=== PATIENT | female | born 1960 | race American Indian/Alaskan Native ===

== ENCOUNTER 2016-08-19 11:00 | Outpatient (CLI) | payer BC ==
--- NOTE | 2016-08-19 11:51 | Mammography Report ---
BONE DENSITY STUDY: DEFINITIONS: BMD = Bone Mineral Density T-score = BMD related to mean peak bone mass of young adult (mean expressed in Standard Deviation) Z-score = Age matched BMD expressed in SD World Health Organization (WHO) Diagnostic Criteria Normal T-score > -1 SD Osteopenia T-score between -1 and -2.4 SD Osteoporosis T-score -2.5 SD or below FINDINGS: The weighted average BMD of lumbar spine L1-L4 is 0.954 with a T-score of -1.8. The BMD of L3 is 0.885 with a T. value score of -2.8. The weighted average BMD of the left hip is 0.799 with a T-score of -1.5. The BMD of the femoral neck is 0.629 with a T. value score of -2.3. IMPRESSION: The patient's average T-score is diagnostic for osteopenia and average relative risk for fracture. Attention to L3 and femoral neck. NOTE: BMD is not the only risk factor for fracture; also consider factors such as the patient's age, risk of falling, previous osteoporotic fracture, family history of osteoporotic fractures, current smoker, and low body weight. Hughes's triangle is a region of interest in femur, predominantly of trabecular bone. It is not a true anatomic site, and ISCD does not recommend its use clinically.
== END 2016-08-19 11:01 | disposition home or self-care (01) ==
LOC: SPVWC 11:00
PROVIDERS: ATTEND Obstetrics & Gynecology
DX: M85.88 Other specified disorders of bone density and structure, other site (principal)
CPT/HCPCS: 77080

== ENCOUNTER 2016-10-02 17:34 | Emergency (ER) | payer BC ==
[2016-10-02 18:10] LABS: Basophils % (Auto) 1.2 % (0.0-1.8); Eosinophils % (Auto) 5.1 % (0.0-4.3); Hematocrit 43.8 % (30.3-42.9); Hemoglobin 14.1 gm/dl (10.1-14.3); Mean Corpuscular HGB Conc 32 % (30-34); Mean Corpuscular Hemoglobin 26 pg (28-32); Mean Corpuscular Volume 81 fl (79-97); Platelet Count 292 K/mm3 (140-440); Red Blood Count 5.38 M/mm3 (3.65-5.03); Red Cell Distribution Width 14.1 % (13.2-15.2); White Blood Count 6.6 K/mm3 (4.5-11.0)
[2016-10-02 18:27] LABS: Anion Gap 21 mmol/L; BUN/Creatinine Ratio 16.25; Blood Urea Nitrogen 13 mg/dL (7-17); Calcium 9.7 mg/dL (8.4-10.2); Carbon Dioxide 24 mmol/L (22-30); Chloride 103.3 mmol/L (98-107); Glucose 79 mg/dL (65-100); Potassium 3.2 mmol/L (3.6-5.0); Sodium 145 mmol/L (137-145)
[2016-10-03] MEDS ORDERED: K-DUR PO ONE (06:25)
[2016-10-03] MEDS ORDERED: TORADOL IM ONE (06:44)
--- NOTE | 2016-10-03 06:58 | Emergency Department Report ---
HPI - General Chief Complaint: Chest Pain Time Seen by Provider: 10/03/16 06:25 - HPI HPI: This is a 55-year-old -[place] female who presents to the emergency department from home, after driving herself in to be seen, with complaint of left jaw pain. The patient says that the pain started in the middle of the day on Monday, yesterday. She says she has a known history of a cyst around the jaw and the soft tissue that was found on some type of imaging in the past and she is unsure if that is the cause of her discomfort. She denies any known history of any dental caries, abscesses or any "bad teeth." She took some naproxen for her discomfort once without much relief. 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 She denies any neck pain, chest pain, shortness of breath, nausea, vomiting or diaphoresis. She has a history of hypertension for which she takes her medications compliantly. She sees Dr. Gordon Greenwood for primary care and goes to [facility]. No recent travel or sick contacts at home. She denies any headache, vision change, slurred speech or any neurological deficits. ED Past Medical Hx - Past Medical History Previous Medical History?: Yes Hx Hypertension: Yes Additional medical history: mvp, cholesterol - Surgical History Past Surgical History?: Yes Additional Surgical History: breast cyst, right shoulder, bunions - Social History Smoking Status: Never Smoker Substance Use Type: Alcohol - Medications Home Medications: Home Medications Medication Instructions Recorded Confirmed Last Taken Type HYDROcodone/APAP 5-325 [[place] 1 each PO Q6HR PRN #10 tablet 10/03/16 Unknown Rx 5/325] ED Review of Systems ROS: Stated complaint: LT SIDE JAW PAIN Other details as noted in HPI Comment: All other systems reviewed and negative Constitutional: denies: chills, fever Eyes: denies: eye pain, eye discharge, vision change ENT: other (jaw pain). denies: throat pain Respiratory: denies: cough, shortness of breath, wheezing Cardiovascular: denies: chest pain, palpitations Gastrointestinal: denies: abdominal pain, nausea, diarrhea Genitourinary: denies: urgency, dysuria, discharge Musculoskeletal: denies: back pain, joint swelling, arthralgia Skin: denies: rash, lesions Neurological: denies: headache, weakness, paresthesias Physical Exam - Physical Exam Vital Signs: Vital Signs 10/02/16 17:40 Temperature 98.4 F Pulse Rate 115 H Respiratory 16 Rate Blood Pressure 129/86 O2 Sat by Pulse 99 Oximetry Physical Exam: GENERAL: The patient is well-developed well-nourished. HEENT: Normocephalic. Atraumatic. Extraocular motions are intact. Patient has moist mucous membranes. Pupils equal reactive to light bilaterally. Oropharynx is clear without any tonsillar hypertrophy, erythema or exudates. No visible palpable dental abscesses. There is no facial swelling. No palpable mass. No drooling or trismus. NECK: Supple. Trachea is midline. Full range of motion. No carotid bruits auscultated. CHEST/LUNGS: Clear to auscultation. There is no respiratory distress noted. HEART/CARDIOVASCULAR: Regular. There is no tachycardia. There is no gallop rub or murmur. ABDOMEN: Abdomen is soft, nontender. Patient has normal bowel sounds. There is no abdominal distention. SKIN: Skin is warm and dry. NEURO: The patient is awake, alert, and oriented. The patient is cooperative. The patient has no focal neurologic deficits. The patient has normal speech. MUSCULOSKELETAL: There is no tenderness or deformity. There is no limitation range of motion. There is no evidence of acute injury. ED Course Vital Signs 10/02/16 17:40 Temperature 98.4 F Pulse Rate 115 H Respiratory 16 Rate Blood Pressure 129/86 O2 Sat by Pulse 99 Oximetry ED Medical Decision Making - Lab Data Result diagrams: 10/02/16 17:56 10/02/16 17:56 - EKG Data -: EKG Interpreted by Ia EKG shows normal: sinus rhythm, axis, intervals, QRS complexes, ST-T waves Rate: tachycardia (110 bpm) - EKG Data When compared to previous EKG there are: previous EKG unavailable Interpretation: normal EKG (with sinus tachycardia) - Medical Decision Making This is a 55-year-old female who presents to the emergency department with complaint of left jaw pain has been going on for the past 1-2 days. There is no signs of infection. No drooling or trismus. There are no carotid bruits auscultated. Heart and lung sounds are normal to auscultation. EKG does not show any signs of ST elevation [place], ischemia or dysrhythmia. There is no radiation from the jaw to the neck, shoulder, chest or back. There is no signs of any abscess. She has a previous history of a cyst in the soft tissue around the affected jaw and may have some level of neuralgia. She was given a shot of Toradol and upon reevaluation she is feeling greatly improved. Vital signs stable throughout her ED course. She has good follow-up with primary care and cardiology. This is low especially for coronary artery disease, however if the patient develops any chest pain or shortness of breath she will return immediately for further evaluation. The patient is a 0 on the VERÓNICA score and low for the hard score criteria. - Differential Diagnosis dental abscess, TMJ, trigeminal neuralgia Critical Care Time: No Critical care attestation.: If time is entered above; I have spent that time in minutes in the direct care of this critically ill patient, excluding procedure time. ED Disposition Clinical Impression: Jaw pain Disposition: DISCHARGED TO HOME OR SELFCARE Is pt being admited?: No Condition: Stable Instructions: Temporomandibular Disorder (ED) Additional Instructions: You have been seen today for your left-sided jaw pain. This could be TMJ, nerve pain from your known cyst, early dental infection, but the etiology is unknown at this time but does not appear to be anything dangerous. Please follow-up with your primary care doctor as soon as possible without fail. Return to the emergency department with any development of chest pain, shortness of breath, worsening of your symptoms or any acute distress. You've been prescribed a medication that is sedating. Therefore this medication cannot be mixed with alcohol, or taken prior to driving, working, or being responsible for children. Prescriptions: HYDROcodone/APAP 5-325 [[place] 5/325] 1 each PO Q6HR PRN #10 tablet PRN Reason: Pain Referrals: GORDON GREENWOOD JR, MD [Primary Care Provider] - 3-5 Days Time of Disposition: 08:09
[2016-10-03 08:28] VITALS: BP 132/77
== END 2016-10-03 08:40 | disposition home or self-care (01) ==
LOC: ED 17:34
DX: R68.84 Jaw pain (principal); I10 Essential (primary) hypertension; E78.00 Pure hypercholesterolemia, unspecified; Z91.013 Allergy to seafood; Z88.8 Allergy status to other drugs, medicaments and biological substances
CPT/HCPCS: 36415; 80048; 84484; 85025; 93005; 93010; 96372; 99284; J1885

== ENCOUNTER 2017-02-23 11:17 | Outpatient (CLI) | payer BC ==
--- NOTE | 2017-02-24 08:38 | Mammography Report ---
BILATERAL DIGITAL SCREENING MAMMOGRAM with CAD: 02/23/17 11:17:00 CLINICAL: Routine screening. COMPARISON:02/17/16 FINDINGS: The breasts are heterogeneously dense, which may obscure small masses. No mass, architectural distortion or suspicious calcifications. IMPRESSION: No mammographic evidence of malignancy. BI-RADS CATEGORY: 1 - - Negative RECOMMENDATION: Routine mammographic screening in one year. COMMENT: Patient follow-up letters are generated by our [employer] application.
== END 2017-02-23 11:18 | disposition home or self-care (01) ==
LOC: SPVWC 11:17
PROVIDERS: ATTEND Obstetrics & Gynecology
DX: Z12.31 Encounter for screening mammogram for malignant neoplasm of breast (principal)
CPT/HCPCS: 77067; G0202

== ENCOUNTER 2017-04-20 00:56 | Emergency (ER) | payer BC ==
[2017-04-20] MEDS ORDERED: BENADRYL PO ONE ×2 (01:22→01:40)
[2017-04-20] MEDS ORDERED: PEPCID ONE (01:22)
[2017-04-20] MEDS ORDERED: PEPCID PO ONE ×2 (01:41→04:26)
--- NOTE | 2017-04-20 04:28 | Emergency Department Report ---
HPI - General Chief Complaint: Allergic Reaction Time Seen by Provider: 04/20/17 03:40 ED Past Medical Hx - Past Medical History Hx Hypertension: Yes Additional medical history: mvp, cholesterol - Surgical History Additional Surgical History: breast cyst, right shoulder, bunions - Social History Smoking Status: Never Smoker Substance Use Type: None - Medications Home Medications: Home Medications Medication Instructions Recorded Confirmed Last Taken Type HYDROcodone/APAP 5-325 [[place] 1 each PO Q6HR PRN #10 tablet 10/03/16 Unknown Rx 5/325] ED Review of Systems ROS: Stated complaint: ALLERGIC REACTION Other details as noted in HPI Physical Exam - Physical Exam Vital Signs: Vital Signs 04/20/17 01:15 Temperature 97.7 F Pulse Rate 100 H Blood Pressure 152/91 O2 Sat by Pulse 99 Oximetry ED Course Vital Signs 04/20/17 01:15 Temperature 97.7 F Pulse Rate 100 H Blood Pressure 152/91 O2 Sat by Pulse 99 Oximetry Critical care attestation.: If time is entered above; I have spent that time in minutes in the direct care of this critically ill patient, excluding procedure time. ED Disposition Condition: Stable Referrals: PRIMARY CARE, [Primary Care Provider] - 3-5 Days
--- NOTE | 2017-04-20 04:33 | Emergency Department Report ---
ED Allergic Reaction HPI - General Chief complaint: Allergic Reaction Stated complaint: ALLERGIC REACTION Time Seen by Provider: 04/20/17 03:40 Source: patient Mode of arrival: Ambulatory Limitations: No Limitations - History of Present Illness Initial Comments: 56-year-old female presents with complaint of hives and itchy skin. States she ate [place] food which may have had shrimp in it. Patient has allergy to shrimp. States that she ate leftover [place] food in the refrigerator at home. States immediately after eating she experienced hives on her face back chest and abdomen. Patient states that her informed her there may have been shrimp. Patient states she took Benadryl and 4 mg of Decadron she had in her drug cabinet at home. Patient then came to the ED for evaluation. Patient given multiple antihistamines in triage. Has experienced significant reduction of her urticaria itching and hives since arriving to the ED. Patient is awake alert and oriented 3 speaking in full sentences nor audible wheezing or stridor. No trismus and no drooling no tripoding on clinical exam. Patient states she is allergic to shellfish and amlodipine. States episode started at 12 AM. Patient denies lip or tongue swelling. Some hives around her eyes. MD Complaint: allergic reaction, hives Onset/Timin -: hour(s) Exposure: food Symptoms: itching, facial swelling Severity: moderate Treatment Prior to Arrival: benadryl Previous Allergy History: angioedema, other (hives secondary to exposure to shellfish) - Related Data Previous Rx's Medication Instructions Recorded Last Taken Type HYDROcodone/APAP 5-325 [[place] 1 each PO Q6HR PRN #10 tablet 10/03/16 Unknown Rx 5/325] EPINEPHrine [Epipen] 0.3 mg IJ ONCE PRN #1 auto.injct 04/20/17 Unknown Rx Famotidine [Pepcid] 20 mg PO BID PRN #30 tablet 04/20/17 Unknown Rx Loratadine [Claritin] 10 mg PO DAILY #30 tablet 04/20/17 Unknown Rx diphenhydrAMINE [Benadryl CAP] 25 mg PO Q8HR PRN #30 capsule 04/20/17 Unknown Rx methylPREDNISolone [Medrol] 4 mg PO QDAY #1 tab.ds.pk 04/20/17 Unknown Rx Allergies Allergy/AdvReac Type Severity Reaction Status Date / Time amlodipine besylate AdvReac Shortness Verified 10/02/16 17:53 [From [facility]] of Breath shellfish derived AdvReac Hives Verified 10/02/16 17:53 ED Review of Systems ROS: Stated complaint: ALLERGIC REACTION Other details as noted in HPI Constitutional: denies: chills, fever Eyes: denies: eye pain, eye discharge, vision change ENT: denies: ear pain, throat pain Respiratory: denies: cough, shortness of breath, wheezing Cardiovascular: denies: chest pain, palpitations Endocrine: no symptoms reported Gastrointestinal: denies: abdominal pain, nausea, diarrhea Genitourinary: denies: urgency, dysuria, discharge Musculoskeletal: denies: back pain, joint swelling, arthralgia Skin: as per HPI, pruritus, other (hives). denies: rash, lesions Neurological: denies: headache, weakness, paresthesias Psychiatric: denies: anxiety, depression Hematological/Lymphatic: denies: easy bleeding, easy bruising ED Past Medical Hx - Past Medical History Hx Hypertension: Yes Additional medical history: mvp, cholesterol - Surgical History Additional Surgical History: breast cyst, right shoulder, bunions - Social History Smoking Status: Never Smoker Substance Use Type: None - Medications Home Medications: Home Medications Medication Instructions Recorded Confirmed Last Taken Type HYDROcodone/APAP 5-325 [[place] 1 each PO Q6HR PRN #10 tablet 10/03/16 Unknown Rx 5/325] EPINEPHrine [Epipen] 0.3 mg IJ ONCE PRN #1 auto.injct 04/20/17 Unknown Rx Famotidine [Pepcid] 20 mg PO BID PRN #30 tablet 04/20/17 Unknown Rx Loratadine [Claritin] 10 mg PO DAILY #30 tablet 04/20/17 Unknown Rx diphenhydrAMINE [Benadryl CAP] 25 mg PO Q8HR PRN #30 capsule 04/20/17 Unknown Rx methylPREDNISolone [Medrol] 4 mg PO QDAY #1 tab.ds.pk 04/20/17 Unknown Rx ED Physical Exam - General Limitations: No Limitations General appearance: alert, in no apparent distress - Head Head exam: Present: atraumatic, normocephalic - Eye Eye exam: Present: normal appearance, PERRL, EOMI - ENT ENT exam: Present: normal orophraynx (oropharynx open and patent. Tongue not swollen. Uvula midline.), mucous membranes moist - Neck Neck exam: Present: normal inspection - Respiratory Respiratory exam: Present: normal lung sounds bilaterally. Absent: respiratory distress - Cardiovascular Cardiovascular Exam: Present: regular rate, normal rhythm. Absent: systolic murmur, diastolic murmur, rubs, gallop - GI/Abdominal GI/Abdominal exam: Present: soft, normal bowel sounds - Extremities Exam Extremities exam: Present: normal inspection - Back Exam Back exam: Present: normal inspection - Neurological Exam Neurological exam: Present: alert, oriented X3, CN II-XII intact, normal gait - Psychiatric Psychiatric exam: Present: normal affect, normal mood - Skin Skin exam: Present: warm, dry, intact, normal color, urticaria (minimal urticaria left on upper extremities). Absent: rash ED Course Vital Signs 04/20/17 04/20/17 01:15 04:56 Temperature 97.7 F 97.5 F L Pulse Rate 100 H 78 Respiratory 16 Rate Blood Pressure 152/91 Blood Pressure 127/89 [Right] O2 Sat by Pulse 99 100 Oximetry ED Medical Decision Making - Medical Decision Making A/P: Allergic reaction, food allergy, hives 1-antihistamines, Benadryl, Claritin, Medrol Dosepak, EpiPen when necessary for angioedema. I explained to the patient the specific circumstances under which to use this and to return to the ED JOSSE if her allergic reaction/hives worsens 2-follow-up with information systems director and primary care 3-patient vital signs stable for discharge with near complete resolution of her allergic symptoms urticaria and hives Critical care attestation.: If time is entered above; I have spent that time in minutes in the direct care of this critically ill patient, excluding procedure time. ED Disposition Clinical Impression: Hives, Food allergy Disposition: DC-01 TO HOME OR SELFCARE Is pt being admited?: No Does the pt Need Aspirin: No Condition: Stable Instructions: Epinephrine (Injection), Urticaria (ED), Food Allergy (ED) Prescriptions: diphenhydrAMINE [Benadryl CAP] 25 mg PO Q8HR PRN #30 capsule PRN Reason: Allergic Reaction EPINEPHrine [Epipen] 0.3 mg IJ ONCE PRN #1 auto.injct PRN Reason: Angioedema Famotidine [Pepcid] 20 mg PO BID PRN #30 tablet PRN Reason: Itching Loratadine [Claritin] 10 mg PO DAILY #30 tablet methylPREDNISolone [Medrol] 4 mg PO QDAY #1 tab.ds.pk Referrals: [facility] [Provider Group] - 3-5 Days Forms: Work/School Release Form(ED) Time of Disposition: 04:29
[2017-04-20 04:57] VITALS: BP 127/89
== END 2017-04-20 04:56 | disposition home or self-care (01) ==
LOC: ED 00:56
DX: L50.9 Urticaria, unspecified (principal); T78.1XXA Other adverse food reactions, not elsewhere classified, initial encounter; I10 Essential (primary) hypertension; Z88.8 Allergy status to other drugs, medicaments and biological substances; Z91.013 Allergy to seafood; X58.XXXA Exposure to other specified factors, initial encounter
CPT/HCPCS: 96372; 99282; J2930

== ENCOUNTER 2017-06-14 10:42 | Outpatient (CLI) | payer BC ==
--- NOTE | 2017-06-14 11:26 | XRay Report ---
ROUTINE CHEST, TWO VIEWS: HISTORY: Shortness of breath. The trachea, heart, mediastinal contour, lung mills and bony thorax are unremarkable. IMPRESSION: Unremarkable chest x-ray.
== END 2017-06-14 10:43 | disposition home or self-care (01) ==
LOC: XRAY 10:42
PROVIDERS: ATTEND Internal Medicine Cardiovascular Disease
DX: R06.02 Shortness of breath (principal); R05 Cough
CPT/HCPCS: 71046

== ENCOUNTER 2019-01-17 10:18 | Outpatient (CLI) | payer BC ==
--- NOTE | 2019-01-18 14:57 | Mammography Report ---
BILATERAL DIGITAL DIAGNOSTIC MAMMOGRAM WITH CAD -- 01/17/2019 BILATERAL LIMITED BREAST ULTRASOUND INDICATION: Bilateral breast pain and lumps. History of bilateral benign biopsies. TECHNIQUE: Digital bilateral mammographic imaging was performed. Magnification views were obtained. This examination was interpreted with the benefit of Computer-Aided Detection (CAD) analysis. COMPARISON: 02/28/2018 FINDINGS: Breast Density: The breasts are heterogeneously dense, which may obscure small masses. MAMMOGRAPHIC FINDINGS: There is no evidence of dominant mass, suspicious calcifications or architectu ral distortion in either breast. No mammographic findings at bilateral simple marker is at 6:00. ULTRASOUND FINDINGS: Targeted ultrasound evaluation was performed of the area of interest. Ultrasou nd of the right breast demonstrated an oval benign cyst at 6:00 5 cm from the nipple measuring 3 x 4 x 4 mm. A vague hypoechoic area of shadowing near a scar at 9:00 7 cm from the nipple measures 7 x 5 x 5 mm and a similar vague hypoechoic area of shadowing near scar at 9:00 6 m from the nipple measure s 5 x 3 x 3 mm. Ultrasound of the left breast demonstrated a shadowing scar at 9:00 8 cm from the nip ple measuring 6 x 4 x 3 mm. IMPRESSION: Negative mammogram and probably benign bilateral scar. Recommend short-term follow-up wit h bilateral breast targeted ultrasound in 3 months. Follow up recommendation: Short term follow up in 3 months. BI-RADS Category 3: Probably Benign. Followup in 3 months. A "normal" or negative report should not discourage follow up or biopsy of a clinically significant f inding. A written summary of these findings will be mailed to the patient. The patient will be entered into a mammography reporting system which will generate a reminder letter for the patient's next appointmen t at the appropriate interval. According to the [employer], yearly mammograms are recommended starting at age 40 and continuing as long as a woman is in good health. Breast MRI is recommended for women with an timmy roximately 20-25% or greater lifetime risk of breast cancer, including women with a strong family his tory of breast or ovarian cancer and women who have been treated for Hodgkin's disease. Signer Name: Bill Navarro MD Signed: 01/18/2019 2:52 PM Workstation Name: [id number]
== END 2019-01-17 10:19 | disposition home or self-care (01) ==
LOC: SPVWC 10:18
PROVIDERS: ATTEND Obstetrics & Gynecology
DX: N64.4 Mastodynia (principal); I10 Essential (primary) hypertension
CPT/HCPCS: 77066

== ENCOUNTER 2019-04-18 11:15 | Outpatient (CLI) | payer BC ==
--- NOTE | 2019-04-18 16:30 | Ultrasound Report ---
LIMITED BILATERAL BREAST ULTRASOUND HISTORY: Follow-up bilateral shadowing lesions. COMPARISON: 01/17/2019. FINDINGS: Focused sonographic evaluation upon the 9:00 7 cm from the nipple location of the right jostin ast demonstrates stable vague shadowing which appears to emanate from an overlying scar. No mass fiss ures finding. Focused sonographic evaluation upon the 9:00 8 cm from the nipple location of the left breast demonst rates stable vague shadowing which appears to emanate from an overlying scar. No suspicious finding. IMPRESSION: Bilateral benign findings. Recommend routine mammographic screening. BIRADS 2: Benign Signer Name: Bill Navarro MD Signed: 04/18/2019 4:25 PM Workstation Name: [id number]
== END 2019-04-18 11:16 | disposition home or self-care (01) ==
LOC: SPVWC 11:15
PROVIDERS: ATTEND Surgery
DX: N64.89 Other specified disorders of breast (principal)

== ENCOUNTER 2020-01-15 10:22 | Outpatient (CLI) | payer BC ==
--- NOTE | 2020-01-15 12:22 | Mammography Report ---
DIGITAL SCREENING MAMMOGRAM WITH CAD, 01/15/2020 INDICATION: Routine screening mammography. TECHNIQUE: Digital bilateral 2D mammography was obtained in the craniocaudal and mediolateral obliq ue projections. This examination was interpreted with the benefit of Computer-Aided Detection analysi s. COMPARISON: 02/23/2017, 02/28/2018 FINDINGS: Breast Density: The breasts are heterogeneously dense, which may obscure small masses. There is no evidence of dominant mass, suspicious calcifications or architectural distortion in eithe r breast. Postsurgical scars are present in the right breast, unchanged. Overall, no interval change in the appearance of the mammogram. IMPRESSION: No evidence of malignancy. Follow up recommendation: Routine yearly BI-RADS Category 2: Benign. A "normal" or negative report should not discourage follow up or biopsy of a clinically significant f inding. A written summary of these findings will be mailed to the patient. The patient will be entered into a mammography reporting system which will generate a reminder letter for the patient's next appointmen t at the appropriate interval. The [employer] recommends yearly mammograms starting at age 40 and continuing as l frieda as a woman is in good health. Breast MRI is recommended for women with an approximate 20-25% or greater lifetime risk of breast cancer, including women with a strong family history of breast or ova lucrecia cancer or who have been treated for Hodgkin's disease. Signer Name: Ele Headley MD Signed: 01/15/2020 12:18 PM Workstation Name: [id number]
== END 2020-01-15 10:23 | disposition home or self-care (01) ==
LOC: SPVWC 10:22
PROVIDERS: ATTEND Surgery
DX: Z12.31 Encounter for screening mammogram for malignant neoplasm of breast (principal)
CPT/HCPCS: 77067

== ENCOUNTER 2020-10-07 14:15 | Outpatient (CLI) | payer BC, OTHER ==
--- NOTE | 2020-10-07 15:25 | Mammography Report ---
LEFT DIGITAL DIAGNOSTIC MAMMOGRAM WITH CAD CONVENTIONAL, 10/07/2020 LEFT LIMITED BREAST ULTRASOUND CLINICAL INFORMATION / INDICATION: Pain in the left breast TECHNIQUE: Digital left mammographic imaging was performed. Limited ultrasound was performed. This ex amination was interpreted with the benefit of Computer-Aided Detection (CAD) analysis. COMPARISON: 01/15/2020, 01/17/2019 FINDINGS: Breast Density: The breasts are heterogeneously dense, which may obscure small masses. MAMMOGRAPHIC FINDINGS: No dominant mass, suspicious calcifications, or architectural distortion in th e left breast. ULTRASOUND FINDINGS: Targeted ultrasound evaluation was performed of the area of interest. No focal sonographic abnormality is seen in the area of concern in the left breast. No solid or cystic lesion s are seen. IMPRESSION: No mammographic or sonographic evidence of malignancy. Follow up recommendation: Back to schedule. BI-RADS Category 2: Benign. A "normal" or negative report should not discourage follow up or biopsy of a clinically significant f inding. A written summary of these findings will be mailed to the patient. The patient will be entered into a mammography reporting system which will generate a reminder letter for the patient's next appointmen t at the appropriate interval. According to the [employer], yearly mammograms are recommended starting at age 40 and continuing as long as a woman is in good health. Breast MRI is recommended for women with an timmy roximately 20-25% or greater lifetime risk of breast cancer, including women with a strong family his tory of breast or ovarian cancer and women who have been treated for Hodgkin's disease. Signer Name: Yuri Vazquez MD Signed: 10/07/2020 3:20 PM Workstation Name: [id number]
== END 2020-10-07 14:16 | disposition home or self-care (01) ==
LOC: SPVWC 14:15
PROVIDERS: ATTEND Surgery
DX: N64.4 Mastodynia (principal); R92.8 Other abnormal and inconclusive findings on diagnostic imaging of breast

== ENCOUNTER 2021-01-19 09:20 | Outpatient (CLI) | payer BC, OTHER ==
--- NOTE | 2021-01-20 09:39 | Mammography Report ---
DIGITAL SCREENING MAMMOGRAM WITH TOMOSYNTHESIS WITH CAD, 01/19/2021 CLINICAL INFORMATION / INDICATION: Routine Screening Mammography. TECHNIQUE: Digital bilateral 2D and 3D mammography with tomosynthesis was obtained in the craniocaud al and mediolateral oblique projections. Computer-Aided Detection (CAD) analysis was used for interp retation of this study. COMPARISON: 10/01/2018 FINDINGS: Breast Density: The breasts are heterogeneously dense, which may obscure small masses. No dominant mass, suspicious calcifications, or architectural distortion in either breast. Postsurgical scars both breasts. Overall, no interval change. IMPRESSION: No mammographic evidence of malignancy. Follow up recommendation: Routine yearly BI-RADS Category 2: Benign. A "normal" or negative report should not discourage follow up or biopsy of a clinically significant f inding. A written summary of these findings will be mailed to the patient. The patient will be entered into a mammography reporting system which will generate a reminder letter for the patient's next appointmen t at the appropriate interval. The [employer] recommends yearly mammograms starting at age 40 and continuing as l frieda as a woman is in good health. Breast MRI is recommended for women with an approximate 20-25% or greater lifetime risk of breast cancer, including women with a strong family history of breast or ova lucrecia cancer or who have been treated for Hodgkin's disease. ovarian cancer or who have been treated for Hodgkin's disease. Signer Name: Ele Headley MD Signed: 01/20/2021 9:35 AM Workstation Name: [email or web address]
== END 2021-01-19 09:21 | disposition home or self-care (01) ==
LOC: SPVWC 09:20
PROVIDERS: ATTEND Surgery
DX: Z12.31 Encounter for screening mammogram for malignant neoplasm of breast (principal)
CPT/HCPCS: 77063; 77067

== ENCOUNTER 2021-07-22 10:15 | Outpatient (CLI) | payer OTHER ==
--- NOTE | 2021-07-22 12:18 | Magnetic Resonance Report ---
MRI left shoulder without contrast INDICATION: LEFT SHOULDER PAIN M25.512. COMPARISON: None FINDINGS: There is moderate acromioclavicular and mild glenohumeral degenerative arthrosis with subc ortical cystic change along the superolateral humeral head. There is mild labral fraying with no discrete tear identified. The biceps tendon is intact. There is a near complete tear involving the anterior fibers of the supraspinatus tendon at the footpl ate with low-grade partial-thickness articular surface extension into the mid fibers of the supraspin atus tendon. There is also superimposed thickening and intermediate fluid signal in the supraspinatus and infraspinatus tendons with trace overlying subacromial/subdeltoid and subcoracoid bursal fluid. IMPRESSION: Degenerative changes in the shoulder with rotator cuff tendinosis and cuff tearing as ab ove. Signer Name: Jose Dickson MD Signed: 07/22/2021 12:10 PM Workstation Name: [id number]
== END 2021-07-22 10:16 | disposition home or self-care (01) ==
LOC: MRI 10:15
PROVIDERS: ATTEND Orthopaedic Surgery
DX: S46.912A Strain of unspecified muscle, fascia and tendon at shoulder and upper arm level, left arm, initial encounter (principal); M19.012 Primary osteoarthritis, left shoulder; X58.XXXA Exposure to other specified factors, initial encounter; Y93.89 Activity, other specified; Y92.89 Other specified places as the place of occurrence of the external cause; Y99.8 Other external cause status